=== PATIENT | male | born 1945 | race Caucasian/White ===

== ENCOUNTER 2018-01-17 07:47 | Day surgery (SDC) | payer MEDICARE ==
[~2018-01-17 07:47] MED LIST: KETOROLAC TROMETHAMINE 0.45% 4 DROP/0.4 ML DROPERETTE OS PRN
[2018-01-17] MEDS ORDERED: CHONDR SU A NA/HYALUR INTRAOC KIT (SURGICARE) ONE (07:58)
[2018-01-17] MEDS ORDERED: EPINEPHRINE INJ/PF 1 MG/1 ML AMPULE ONE (07:58)
[2018-01-17] MEDS ORDERED: LIDOCAINE 1% INJ-PF (10 MG/ML) 30 ML SDV ONE (07:58)
[2018-01-17] MEDS: CYCLOPENTOLATE 0.2%/PHENYLEPHRINE 1% OPH SOLN 2 ML OS PRN ×3 (08:24→08:44)
[2018-01-17] MEDS: TROPICAMIDE 1% OPH SOLN 3 ML OS PRN ×3 (08:24→08:44)
[2018-01-17] MEDS: BESIFLOXACIN HCL 0.6% OPH SUSP 5 ML BOTTLE OS PRN ×4 (08:24→09:30)
[2018-01-17] MEDS: TETRACAINE HCL 0.5% OPH SOLN 2 ML OS PRN ×3 (08:25→09:01)
[2018-01-17] MEDS ORDERED: MIDAZOLAM 2 MG/2 ML INJ ONE (08:42)
[2018-01-17] MEDS ORDERED: FENTANYL CITRATE INJ/PF 100 MCG/2 ML AMPUL ONE ×2 (08:42→09:17)
--- NOTE | 2018-01-18 13:06 | [facility] DISCHARGE SUMMARY E ---
[facility] Discharge Summary NAME: YAMILA GONZALEZ AGE: 72Y ADMITTED: 01/17/2018 DISCHARGED: 01/17/2018 DIAGNOSIS: Cataract, left eye, with insertion of a toric IOL. SUMMARY: This is a 72-year-old patient who underwent cataract extraction, left eye. The patient underwent surgery because he was having trouble seeing road signs. DISCHARGE INSTRUCTIONS: Patient should be on a regular diet, no bending at the waist, and no heavy lifting. He should use his Besivance, Ilevro, and Durezol at 3 p.m. and 8 p.m. and sleep with a rigid shield. I will see him for a 1-day postoperative tomorrow. DICTATING PHYSICIAN: ELIA GARCIA M.D. [id number] PHY#: [id number] ID: [id number] JOB#: [id number] ACCT: [id number] cc:ELIA GARCIA M.D. >
--- NOTE | 2018-01-18 13:06 | [facility] OPERATIVE REPORT E ---
[facility] Operative Report NAME: YAMILA GONZALEZ AGE: 72Y DATE OF SURGERY: 01/17/2018 ROOM: PREOPERATIVE DIAGNOSIS: CATARACT, LEFT EYE. POSTOPERATIVE DIAGNOSIS: CATARACT, LEFT EYE. OPERATION: Cataract extraction with toric intraocular lens implant of the left eye. SURGEON: ELIA GARCIA M.D. ANESTHESIA: Topical. COMPLICATIONS: None. ESTIMATED BLOOD LOSS: None. PROCEDURE: After appropriate consent was obtained and calculations made, the patient was brought back to the operating room where the patient was prepped and draped in sterile fashion. A lid speculum was placed and attention was directed to a paracentesis where a paracentesis blade made a small incision. Viscoelastic was then used to inflate the anterior chamber. Next a 2.4 mm incision was made with the paracentesis blade. A continuous capsulorhexis forceps of approximately 5 mm was done using a cystitome and capsulorhexis forceps. Hydrodissection was carried out to make the lens freely mobile and then a qnxpkk-qfo-wqazfja technique was used to remove the lens with a CDE of approximately 9.13. Following this the remaining cortical material was removed with irrigation/aspiration. After this the patient was then again marked. The marking procedure started in the preoperative holding area where 180 and 0 was marked with a marker. Now that the patient was in the operating room a 360-degree marker was used to jose the axis at approximately 175 degrees and a toric lens of 16.5 diopters, [id number], was injected into the bag after filling with viscoelastic and rotating into proper position. The I/A was used to remove the viscoelastic material and the toric lens appeared to be appropriately aligned. A 10-0 nylon suture was used to close the corneal incision and TobraDex was instilled into the eye and a pressure patch was placed with a protective shield. The patient returned to postoperative recovery in stable condition. DICTATING PHYSICIAN: ELIA GARCIA M.D. [id number] PHY#: [id number] ID: [id number] JOB#: [id number] ACCT: [id number] cc:ELIA GARCIA M.D. >
== END 2018-01-17 10:20 | disposition home or self-care (01) ==
LOC: SC 07:47
PROVIDERS: ATTEND Internal Medicine
DX: H25.812 Combined forms of age-related cataract, left eye (principal); H04.123 Dry eye syndrome of bilateral lacrimal glands; Z96.1 Presence of intraocular lens; E11.9 Type 2 diabetes mellitus without complications; Z88.0 Allergy status to penicillin; Z79.4 Long term (current) use of insulin; Z79.891 Long term (current) use of opiate analgesic
CPT/HCPCS: 66984; 82962; V2787; J2250; J3490 ×2; A9270; J0171; J3010; 142